=== PATIENT | female | born 1940 | race Caucasian/White ===

== ENCOUNTER 2021-09-25 08:48 | Emergency (ER) | payer MEDICARE ==
[~2021-09-25] VITALS: Ht 162.6 cm; Wt 75.5 kg
[2021-09-25] MEDS ORDERED: normal saline 1000ML IV soln IVB ONE (09:00)
[2021-09-25] MEDS ORDERED: ondansetron/PF 4mg/2ml inj IV ONE (09:00)
[2021-09-25 09:25] LABS: BASOPHILS % (AUTO) 0.1 % (0-1); EOSINOPHILS % (AUTO) 0.3 % (0-6); HEMATOCRIT 42.2 % (35.0-45.0); HEMOGLOBIN 14.1 g/dl (12.0-16.0); LYMPHOCYTES # (AUTO) 0.8 X10'3 (1.1-4.8); LYMPHOCYTES % (AUTO) 8.1 % (21-51); MEAN CORPUSCULAR HEMOGLOBIN 31.1 PG (27.0-31.0); MEAN CORPUSCULAR HGB CONC 33.5 g/dL (33.0-36.5); MEAN CORPUSCULAR VOLUME 92.7 FL (78-98); MEAN PLATELET VOLUME 8.9 FL (7.4-10.4); MONOCYTES # (AUTO) 0.4 X10'3 (0-0.9); MONOCYTES % (AUTO) 4.3 % (2-12); NEUTROPHILS # (AUTO) 8.7 X10'3 (1.8-7.7); NEUTROPHILS % (AUTO) 87.2 % (42-75); PLATELET COUNT 173 X10'3 (140-440); RED BLOOD COUNT 4.55 X10'6 (4.20-5.60); RED CELL DISTRIBUTION WIDTH 13.1 % (11.5-14.5)
[2021-09-25 09:41] LABS: ALANINE AMINOTRANSFERASE 21 U/L (12-78); ALBUMIN 3.5 G/DL (3.4-5.0); ALBUMIN/GLOBULIN RATIO 0.9 (1.1-1.5); ALKALINE PHOSPHATASE 93 IU/L (46-116); ANION GAP 12 (8-16); ASPARTATE AMINO TRANSFERASE 20 U/L (10-37); BILIRUBIN,TOTAL 0.3 MG/DL (0.1-1.0); BLOOD UREA NITROGEN 26 MG/DL (7-18); BUN/CREATININE RATIO 16.9 (6.6-38.0); CALCIUM 8.9 MG/DL (8.5-10.1); CHLORIDE 107 MMOL/L (99-107); CREATININE 1.54 MG/DL (0.40-0.90); GLUCOSE 172 MG/DL (70-104); LIPASE 492 U/L (73-393); SODIUM 143 MMOL/L (135-145); TOTAL CARBON DIOXIDE 24.1 MMOL/L (24-32); TOTAL PROTEIN 7.2 G/DL (6.4-8.2); eGFR 32 ML/MIN
[2021-09-25 09:50] LABS: POTASSIUM 4.2 MMOL/L (3.5-5.1)
[2021-09-25] MEDS ORDERED: metoclopramide 5 mg/ml inj IV ONE (11:25)
[2021-09-25 12:12] LABS: CLARITY,URINE CLEAR (Clear); COLOR,URINE YELLOW (Yellow); GLUCOSE, URINE 100 mg/dl (Neg); KETONES,URINE 15 mg/dl (Neg); LEUKOCYTE ESTERASE ,URINE NEGATIVE (Neg); NITRITES, URINE NEGATIVE (Neg); OCCULT BLOOD,URINE MODERATE (Neg); PROTEIN,URINE 100 mg/dl (Neg); UROBILINOGEN,URINE 0.2 E.U/dL (0.2-1.0)
[2021-09-25 12:19] LABS: UA COLLECTION TYPE CLN CATCH MIDSTREAM
[2021-09-25 12:21] LABS: WBC,URINE 0-4 /HPF (0-4)
[2021-09-25 12:22] LABS: BACTERIA,URINE FEW /HPF (Neg); MUCUS STRANDS NONE SEEN /LPF (Neg); SQUAMOUS EPITHELIAL CELL,UR FEW /LPF (FEW)
[2021-09-25 12:28] LABS: URINE AMPHETAMINE SCREEN NEGATIVE (Neg); URINE BARBITUATE SCREEN NEGATIVE (Neg); URINE BENZODIAZEPINES SCREEN NEGATIVE (Neg); URINE CANNABINOID SCREEN NEGATIVE (Neg); URINE COCAINE SCREEN NEGATIVE (Neg); URINE METHADONE SCREEN NEGATIVE (Neg); URINE OPIATE SCREEN NEGATIVE (Neg); URINE PHENCYCLIDINE SCREEN NEGATIVE (Neg)
[2021-09-25] MEDS ORDERED: ONDA4TAB12 PO (12:59)
[2021-09-25] MEDS ORDERED: HYDR-3965 PO (12:59)
[2021-09-25] MEDS ORDERED: ALBU6.7H9 INH (12:59)
[2021-09-25] MEDS ORDERED: CEPH250T PO (12:59)
[2021-09-25] MEDS ORDERED: GUAI120015 PO (12:59)
[2021-09-25] MEDS ORDERED: ipratropium/albuterol 3ml nebule NEB ONE (13:00)
--- NOTE | 2021-09-25 13:39 | NUR ---
SVN GIVEN, BS GOOD AERATION THROUGH OUT POSTERIORLY WITH FAINT INSP. CRACKLES IN BILATERAL BASES NO SIGNIFIGANT CHANGE POST TX. PATIENT IS NAUSEATED AND PATIENT DID THROW UP SA
--- NOTE | 2021-09-25 13:42 | NUR ---
SMALL AMOUNT OF STOMACH CONTENT
[2021-09-25 15:49] VITALS: BP 174/68
== END 2021-09-25 15:30 | disposition home or self-care (01) ==
LOC: ER 08:49
DX: K85.00 Idiopathic acute pancreatitis without necrosis or infection (principal); J18.9 Pneumonia, unspecified organism; I10 Essential (primary) hypertension; E78.00 Pure hypercholesterolemia, unspecified; E03.9 Hypothyroidism, unspecified; Z79.899 Other long term (current) drug therapy
CPT/HCPCS: 36415; 71045; 74176; 80053; 80305; 81001; 83690; 85025; 94640; 96361; 96374; 96375; 99285; J2405; J2765; J7030; A4314